=== PATIENT | male | born 1955 | race Caucasian/White ===

== ENCOUNTER 2024-02-06 09:22 | Day surgery (SDC) | payer BC, MEDICARE ==
[2024-02-06] MEDS: Polymyxin B/Trimethoprim 10 ML Bottle EYERT SCH (09:38)
[2024-02-06] MEDS: Brimonidine 0.2% Ophth Soln 5 ML Bottle EYERT SCH (09:44)
[2024-02-06] MEDS: Phenylephrine 2.5% Ophth Soln 2 ML Bot EYERT SCH (09:49)
[2024-02-06] MEDS: Tropicamide 1% Ophth Soln 3 ML Bottle EYERT SCH (09:55)
[2024-02-06] MEDS: Tetracaine HCl/PF 0.5% 4 ML Bottle EYEBOTH SCH (11:13)
[2024-02-06] MEDS: Lidocaine 1% PF 2 ML SDV INJECT SCH (11:37)
[2024-02-06] MEDS: Cefuroxime 10 MG/ML SYRINGE EYERT SCH (11:50)
[2024-02-06] MEDS: Pilocarpine 4% Ophth Soln 15 ML Bot EYERT SCH (12:04)
== END 2024-02-06 12:10 | disposition home or self-care (01) ==
LOC: JD.SDS 09:22
PROVIDERS: ATTEND Ophthalmology
DX: H25.813 Combined forms of age-related cataract, bilateral (principal); I10 Essential (primary) hypertension; E89.0 Postprocedural hypothyroidism; Z87.891 Personal history of nicotine dependence; Z79.899 Other long term (current) drug therapy
CPT/HCPCS: 66984; A9270; J0697; J3490